=== PATIENT | female | born 1990 | race Caucasian/White ===

== ENCOUNTER 2023-09-16 19:16 | Emergency (ER) | payer OTHER, SELFPAY ==
[2023-09-16 19:31] VITALS: BP 125/87; PULSE 74; RESP 20; TEMP 36.9; O2SAT 98; BMI 25.7
[2023-09-16] MEDS: hydrOXYzine pamoate 25 MG CAPSULE 50 MG PO (19:45)
[2023-09-16 21:14] VITALS: PULSE 63
[2023-09-16 21:15] VITALS: BP 132/87; PULSE 62; O2SAT 99
[2023-09-16 21:19] VITALS: BP 132/87; PULSE 64; RESP 18; TEMP 37.1; O2SAT 100
--- NOTE | 2023-09-16 21:43 | ED.ANXIETY ---
HPI - Anxiety General Chief Complaint: Anxiety Stated Complaint: panic attack Time Seen by Provider: 09/16/23 21:25 Source: patient Mode of arrival: Ambulatory History of Present Illness HPI narrative: 32-year-old female presents for panic attack x2 days. Patient recently moved to the area, has numerous stressors, she states that she has anxiety but has never felt like this before. She tried to manage her symptoms at home but was unable to sleep and felt increasingly more panicky and so decided to come to the ER for evaluation. Patient has a primary care doctor's appointment on Wednesday (3 days) Related Data Previous Rx's Medication Instructions Recorded hydroxyzine HCl 25 mg tablet 25 mg PO TID PRN anxiety #30 tabs 09/16/23 Allergies Allergy/AdvReac Type Severity Reaction Status Date / Time No Known Drug Allergies Allergy Verified 09/16/23 19:31 Review of Systems Review of Systems Narrative: Negative except as noted above Patient History Social History Smoking Status: Never smoker Smoking Status: Never smoker tobacco type: vaping alcohol intake frequency: a few times a week Substance Use Type: marijuana Exam Initial Vital Signs Initial Vital Signs: Vital Signs Temperature 98.5 F 09/16/23 19:31 Pulse Rate 74 09/16/23 19:31 Respiratory Rate 20 09/16/23 19:31 Blood Pressure 125/87 09/16/23 19:31 Pulse Oximetry 98 09/16/23 19:31 Oxygen Delivery Method Room Air 09/16/23 19:31 Const: Awake, alert, tearful Cardiac: regular rate, regular rhythm RESP: unlabored, clear bilaterally, no wheezing GI: Atraumatic, soft, nontender, nondistended, no rebound, no guarding MSK: Atraumatic, full range of motion, pulses equal Skin: Warm, Dry, intact, no rashes Neuro: AO x3, CN II-XII grossly intact, moves all extremities Psych: anxious affect, not suicidal Course Course Course Narrative: Patient presenting for persistent panic attack. She does appear to be anxious, denies suicidal or homicidal ideation. Numerous stressors, patient recently moved here from [facility], started on a new job, and has a sick family member that is causing a lot of stress. Patient received hydroxyzine while in the waiting room and by the time she was placed in an ED bed she states the medicine made her feel much better and she finally felt tired. Patient has upcoming primary care appointment within 1 week and I recommended discussing possibly starting antianxiety medications and therapy. Patient states that she does attend therapy and we will continue to go to sessions. Hydroxyzine sent to pharmacy of choice. Orders Ordered: Discontinued Medications Hydroxyzine Pamoate (Hydroxyzine Pamoate 25 Mg Capsule) 50 mg PO NOW ONE Stop: 09/16/23 19:42 Last Admin: 09/16/23 19:45 Dose: 25 mg Documented By: QAMAR Hydroxyzine Pamoate (Hydroxyzine Pamoate 25 Mg Capsule) 25 mg PO NOW ONE Stop: 09/16/23 21:48 Last Admin: 09/16/23 21:51 Dose: 25 mg Documented By: LYNN Vital Signs Vital signs: Vital Signs - 8 hr 09/16/23 21:58 Temperature 99.5 F Pulse Rate 55 L Respiratory Rate 14 Blood Pressure 132/87 Pulse Oximetry 99 Oxygen Delivery Method Room Air MDM - Anxiety Differential Diagnosis Differential diagnosis: Likely hyperventilation, panic disorder and acute anxiety Discharge Plan Departure Patient Disposition: Home Clinical Impression: Acute anxiety Instructions: DI for Anxiety -- Adult Prescriptions: New hydroxyzine HCl 25 mg tablet 25 mg PO TID PRN (Reason: anxiety) Qty: 30 0RF Referrals: ProviderLucas [Primary Care Provider] - Stand Alone Forms: Patient Portal/API
[2023-09-16] MEDS: hydrOXYzine pamoate 25 MG CAPSULE PO (21:51)
[2023-09-16 21:58] VITALS: BP 132/87; PULSE 55; RESP 14; TEMP 37.5; O2SAT 99
== END 2023-09-16 21:59 | disposition home or self-care (01) ==
PROVIDERS: Emergency Provider Emergency Medicine
DX: F41.9 Anxiety disorder, unspecified (principal)
CPT/HCPCS: 99283

== ENCOUNTER → 2024-05-30 08:11 | Outpatient (CLI) | payer OTHER, SELFPAY ==
[2024-05-30 09:26] LABS: HCG Quantitative /Beta subunit 6142.6 mIU/mL
== END ==
LOC: LAB 08:12
PROVIDERS: Referring Provider Student in an Organized Health Care Education/Training Program; Visit Provider Student in an Organized Health Care Education/Training Program
DX: Z34.80 Encounter for supervision of other normal pregnancy, unspecified trimester (principal); N96 Recurrent pregnancy loss
CPT/HCPCS: 36415; 84702

== ENCOUNTER → 2024-06-01 08:12 | Outpatient (CLI) | payer OTHER, SELFPAY ==
[2024-06-01 11:17] LABS: HCG Quantitative /Beta subunit 14778 mIU/mL
== END ==
PROVIDERS: Referring Provider Student in an Organized Health Care Education/Training Program; Visit Provider Student in an Organized Health Care Education/Training Program
DX: Z34.80 Encounter for supervision of other normal pregnancy, unspecified trimester (principal); N96 Recurrent pregnancy loss
CPT/HCPCS: 36415; 84702

== ENCOUNTER → 2024-06-19 10:15 | Outpatient (CLI) | payer OTHER, SELFPAY | PROVIDERS: Visit Provider Student in an Organized Health Care Education/Training Program | DX: Z34.80 Encounter for supervision of other normal pregnancy, unspecified trimester (principal); Z86.39 Personal history of other endocrine, nutritional and metabolic disease | CPT/HCPCS: 87086 ==

== ENCOUNTER → 2024-07-07 08:29 | Outpatient (CLI) | payer OTHER, SELFPAY ==
[2024-07-07 09:11] LABS: Add Manual Diff / Slide Review NO; Basophils Absolute Auto 100 /uL (0-100); Basophils Percent Auto 0.8 % (0-2); Eosinophils Absolute Auto 200 /uL (0-450); Hematocrit 40.6 % (36-46); Hemoglobin 14.1 g/dL (12.0-16.0); Lymphocytes Absolute Auto 1700 /uL (1100-4500); Lymphocytes Percent Auto 18.2 % (25-40); Mean Corpuscular HGB Conc 34.8 % (30-36); Mean Corpuscular Hemoglobin 30.1 PG (26-34); Mean Corpuscular Volume 86.6 fL (80-100); Monocytes Absolute Auto 600 /uL (0-900); Monocytes Percent Auto 5.9 % (3-14); Neutrophils Absolute Auto 6900 /uL (1500-7000); Neutrophils Percent Auto 73.1 % (50-75); Platelet Count 281 X10^3/uL (150-400); Red Blood Cell Count 4.69 X10^6/uL (4.0-5.2); Red Cell Distribution Width 12.2 % (11.6-14.8); White Blood Cell Count 9.5 X10^3/uL (4.5-11.0)
[2024-07-07 09:35] LABS: Natera Collection Specimen Collected
[2024-07-07 09:52] LABS: Thyroid Stimulating Hormone 1.43 uIU/mL (0.47-4.68)
[2024-07-07 09:55] LABS: Hepatitis B Surface Antigen NEGATIVE s/c (NEGATIVE); Rubella Antibody IgG 51.7 IU/mL (>15)
[2024-07-07 10:11] LABS: HIV 1 & 2 Ab/Ag 4th Gen Combo NEGATIVE (NEGATIVE); Hep C Virus Ab w/Reflex Quant NEGATIVE s/c (NEGATIVE)
[2024-07-08 06:36] LABS: RPR Screen Non Reactive (Non Reactive)
[2024-07-08 11:15] LABS: Varicella IgG Antibody Reactive (Non Reactive)
== END ==
LOC: LAB 08:30
PROVIDERS: Referring Provider Student in an Organized Health Care Education/Training Program; Visit Provider Student in an Organized Health Care Education/Training Program
DX: Z34.01 Encounter for supervision of normal first pregnancy, first trimester (principal); Z86.39 Personal history of other endocrine, nutritional and metabolic disease; Z3A.10 10 weeks gestation of pregnancy
CPT/HCPCS: 36415; 80055; 84443; 86787; 86803; 86850; 86900; 86901; 87389

== ENCOUNTER → 2024-09-11 09:50 | Outpatient (CLI) | payer OTHER, SELFPAY ==
--- NOTE | 2024-09-11 09:52 | DI.US.S_ITS ---
PROCEDURE: US OB >= 14 WEEKS FETUS INDICATIONS: 20 WEEK ANATOMY OUTSIDE/PRIOR DATING DATA: The calculations are made using the working KENYA of 01/28/2025. TECHNIQUE: Real-time scanning was performed of the fetus, with image documentation and biometric measurements. Endovaginal scanning: Not performed COMPARISON: None. FINDINGS: General: A single living intrauterine gestation is present. Presentation: Vertex. Placenta: Placental position is anterior , without previa. Amniotic fluid index: 15.2 cm, normal range is 5-24 cm. Single deepest vertical pocket is 5.4 cm. heart rate: 152 beats per minute. Maternal cervical canal: 3.7 cm long. Normal lower limit is 2.5 cm. biometrics: Biparietal diameter: 4.7 centimeter, 20 weeks 2 days Head circumference: 18.4 centimeter, 20 weeks 5 days Abdominal circumference: 16.8 centimeter, 21 weeks 6 days Femur length: 3.2 centimeters, 19 weeks 6 days Clinically estimated gestational age: 20 weeks 1 day Composite gestational age from present scan: 20 weeks 5 days Estimated weight and percentile: 384 grams, 85 percentile Anatomic survey: Neuro: Ventricles are non-dilated at less than 10 mm. Cisterna magna is normal at 3-11 mm. Cerebellum is normal in size and morphology. Nuchal skin fold: Normal at less than 6 mm between 14-21 weeks gestational age. Face: Nose and lips, facial profile are normal. Spine: No evidence for spina bifida. Heart: 4-chambered heart is present, with normal ventricular outflow tracts. Diaphragm: Diaphragm is intact. Stomach: Left-sided stomach is present. Kidneys: No hydronephrosis. Normal is less than 5 mm in 2nd trimester, less than 7 mm in 3rd trimester. Cord: 3-vessel cord has orthotopic insertion. Bladder: Normal in size. Extremities: All 4 extremities identified. IMPRESSION: Single living intrauterine at 20 weeks 1 day, KENYA of 01/28/2025. Estimated weight of 384 grams, 85th percentile. Normal anatomy survey. We strive to produce accurate, complete, and clear reports of imaging services. To assist us in improving patient care, this report was composed using standard report templates and voice recognition software. Therefore, it may contain abnormal punctuation, insertions and/or omissions. Occasional wrong-word or sound-alike substitutions may occur. Though we review the report and make efforts to correct it, we do recommend that the report be read carefully in proper context to recognize any text inaccuracies. Dictated by: Pee Dougherty M.D. on 09/11/2024 at 16:42 Approved by: Pee Dougherty M.D. on 09/11/2024 at 16:44
== END ==
PROVIDERS: Referring Provider Student in an Organized Health Care Education/Training Program; Visit Provider Student in an Organized Health Care Education/Training Program
DX: Z34.82 Encounter for supervision of other normal pregnancy, second trimester (principal); Z3A.20 20 weeks gestation of pregnancy
CPT/HCPCS: 76811

== ENCOUNTER → 2024-10-28 09:34 | Outpatient (CLI) | payer OTHER, SELFPAY ==
[2024-10-28 11:12] LABS: Hematocrit 33.4 % (36-46)
[2024-10-28 11:46] LABS: GTT (PREG) 1 Hour PP 50gm Dose 121 mg/dL (76-139)
== END ==
PROVIDERS: Referring Provider Student in an Organized Health Care Education/Training Program; Visit Provider Student in an Organized Health Care Education/Training Program
DX: Z34.82 Encounter for supervision of other normal pregnancy, second trimester (principal); Z3A.26 26 weeks gestation of pregnancy; Z67.91 Unspecified blood type, Rh negative; Z86.39 Personal history of other endocrine, nutritional and metabolic disease
CPT/HCPCS: 36415; 82950; 84443; 85014; 85018; 86850

== ENCOUNTER → 2025-01-01 08:19 | Outpatient (CLI) | payer OTHER, SELFPAY ==
[2025-01-02 16:24] LABS: Strep Grp B PCR NEG for Grp B Strep
== END ==
PROVIDERS: Referring Provider Student in an Organized Health Care Education/Training Program; Visit Provider Student in an Organized Health Care Education/Training Program
DX: Z36.85 Encounter for antenatal screening for Streptococcus B (principal)
CPT/HCPCS: 87653

== ENCOUNTER 2025-01-22 15:03 | Inpatient (IN) | payer OTHER, SELFPAY ==
[2025-01-22 15:05] VITALS: BP 123/69
[2025-01-22 15:48] LABS: Add Manual Diff / Slide Review NO; Basophils Absolute Auto 100 /uL (0-100); Basophils Percent Auto 0.8 % (0-2); Eosinophils Absolute Auto 100 /uL (0-450); Eosinophils Percent Auto 0.8 % (2-4); Hematocrit 32.5 % (36-46); Hemoglobin 11.4 g/dL (12.0-16.0); Lymphocytes Absolute Auto 1700 /uL (1100-4500); Lymphocytes Percent Auto 15.1 % (25-40); Mean Corpuscular Hemoglobin 30.6 PG (26-34); Mean Corpuscular Volume 87.2 fL (80-100); Monocytes Absolute Auto 700 /uL (0-900); Monocytes Percent Auto 6.4 % (3-14); Neutrophils Absolute Auto 8400 /uL (1500-7000); Neutrophils Percent Auto 76.9 % (50-75); Platelet Count 212 X10^3/uL (150-400); Red Blood Cell Count 3.73 X10^6/uL (4.0-5.2); Red Cell Distribution Width 12.5 % (11.6-14.8); White Blood Cell Count 10.9 X10^3/uL (4.5-11.0)
[2025-01-22] MEDS: miSOPROStoL 25 MCG TABLET 50 MCG PO (15:54)
--- NOTE | 2025-01-22 16:31 | P.HPOB_ITS ---
OB HPI Date/Time Date of admission: 01/22/25 Date Patient Seen: 01/22/25 Time Patient Seen: 16:31 History of Present Condition Chief complaint: INDUCTION KENYA Calculator 2 Estimated Delivery Date Method Current WG Current Estimate 01/28/25 LMP (Certain) 39w 1d Other Estimates 01/30/25 Ultrasound #1 38w 6d 01/30/25 Conception 38w 6d : 3 Para: 0 Narrative: 34yo at 39+1wks admitted for elective IOL. She reports occasional contractions, denies leaking fluid or vaginal bleeding. Feeling regular movement. care: good care Dating criteria OB: LMP confirmed by 1st trimester US Ultrasounds: normal mid trimester US Narrative: Ultrasound Ultrasound Details:: Dating sono 06/19/24: jay IUP with CRL 1.46cm (7+6wks), FHR 153, normal appearing uterus, cervix, bilateral ovaries Anatomy US 09/11/24: normal anatomy, anterior placenta, EFW 85%ile Specific Issues/Plans [x ] cfDNA- low risk XX; declined CF/SMA Desires elective IOL at 39wks--> on wishlist for evening of 01/22 Rh negative--> [ x] rhogam at 28wks Anxiety, currently well managed on 50mg sertraline Hx partial thyroidectomy (not on synthroid), nml TSH with NOB labs Nausea/vomiting of --> using B6/unisom, zofran Misbah (active duty; 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) Assigned to [facility] Preadmission Labs Last OB Lab Results: 2 Blood Type O Negative 07/07/24 08:35 Antibody Screen Negative 10/28/24 09:49 Hct 32.5 % (36-46) L 01/22/25 15:15 Hgb 11.4 g/dL (12.0-16.0) L 01/22/25 15:15 Hep Bs Antigen Negative s/c (NEGATIVE) 07/07/24 08:35 Hepatitis C Antibody Negative s/c (NEGATIVE) 07/07/24 08:35 Rubella Antibody 51.7 IU/mL (>15) 07/07/24 08:35 VZV IgG Antibody Reactive (Non Reactive) 07/07/24 08:35 Glucose 1 Hr 50 gm 121 mg/dL (76-139) 10/28/24 11:04 Group B Strep (PCR) Neg for grp b strep 01/01/25 08:19 Glucose Tolerance Testin hr (negative) -: Chlamydia screen: negative, Gonorrhea screen: negative and Urine: negative -: PAP smear: Normal Genetic Screens: Cell-free DNA: Normal External Labs -: Urine: negative Prior (ies) Past Pregnancies Del. Date GA/Weeks Labor Lgth Wt Sex Route Outcome Anesthesia Place Delv Breastfeed Preg Comp Name 07/13/17 10 spontaneous 11/09/23 <7 spontaneous Delivery Date: 07/13/17 Last Updated by: Neli Spain RN missed AB, needed D&C. No complications. Delivery Date: 11/09/23 Last Updated by: Jewels Adamson DO blighted ovum, managed with cytotec Evaluation Evaluation Baseline heart rate: 130 Variability: Moderate (11-25) monitor accelerations: Present Monitor Decelerations: Absent Status: Category l Dilation (cm): 0 Effacement (%): 0 station: -3 Position of cervix: posterior Consistency: medium PFSH Medical History (Updated 12/19/24 @ 08:47 by Jewels Adamson DO) Missed Thyroid nodule (~2017) History of thyroid disease Strep throat Hypopituitarism Anxiety (~2008) Goiter Surgical History (Updated 11/26/23 @ 18:49 by Marta Walker) Anesthesia H/O dilation and curettage (~2016) [place] teeth extracted (~2010) History of tonsillectomy and adenoidectomy (~2002) History of partial thyroidectomy (~2018) Family History (Updated 11/26/23 @ 18:49 by Marta Walker) Father Adopted Hypertension Obesity Mother Diverticulosis Obesity Alcoholism Mental health problem Grandfather Leukemia Grandmother Hypothyroidism Dementia Diverticulosis Grandmother Breast cancer Uncle Melanoma Social History marital status: number of children: 0 household members: spouse lives independently: Yes caregiver/support person: No housing: house pets and animals: Yes (2 dogs, 2 cats, manages litter box) education level: master's degree (law) occupational status: employed (works from home) current occupational exposures/hazards: No special colleen needs: No travel history: recent (domestic only) seatbelt use: always helmet use: No water heater temp set < 120 deg: Yes working smoke detector in home: Yes fire extinguisher in home: Yes carbon monox detector in home: Yes firearms in home: Yes firearms unloaded and locked: Yes do you feel safe at home: Yes Smoking Status: Former smoker Tobacco: How many years used: 3 (vape pens only) second hand exposure: Yes ( vapes, but cutting back) alcohol intake: former (~5 seltzers/week when not ) substance use type: marijuana (agrees not to use while /) during the past year weight has: remained stable well-balanced diet: daily or most days daily servings fruits/ve or more times/day caffeine: Yes (1 cup AM coffee) Type(s) of exercise: walking and other (hiking on weekends) frequency: daily Meds Home Medications and Allergies Home Medications Medication Instructions Recorded Confirmed Type vit no.95-ferrous 1 tab PO DAILY 10/22/23 01/22/25 History fumarate 28 mg-folic acid 800 mcg tablet ( Multivitamins) sertraline 50 mg tablet 50 mg PO DAILY #90 tabs 06/19/24 01/22/25 Rx Allergies Allergy/AdvReac Type Severity Reaction Status Date / Time mushroom AdvReac Mild Abdominal Verified 01/08/25 10:11 Pain Review of Systems Review of Systems ROS: Yes All systems reviewed with the patient and are negative except as otherwise documented OB Exam Vital signs Blood Pressure: 121/77 Pulse Rate: 64 Temperature: 97.2 F HENMT Head: normal to inspection and normocephalic Eyes General: appearance normal, both eyes and all related structures Resp Effort & Inspection: normal respiratory effort and able to speak in complete sentences Extremities Lower extremity: Yes normal to inspection GI Inspection: normal to inspection Other: gravid, nontender, nondistended Objective Labs 01/22/25 15:15 Labs: Laboratory Results - last 24 hr 01/22/25 15:15 WBC 10.9 RBC 3.73 L Hgb 11.4 L Hct 32.5 L MCV 87.2 MCH 30.6 MCHC 35.0 RDW 12.5 Plt Count 212 Neut % (Auto) 76.9 H Lymph % (Auto) 15.1 L [place] % (Auto) 6.4 Eos % (Auto) 0.8 L Baso % (Auto) 0.8 Neut # (Auto) 8400 H Lymph # (Auto) 1700 [place] # (Auto) 700 Eos # (Auto) 100 Baso # (Auto) 100 Assessment and Plan Assessment and Plan Assessment and Plan narrative: 34yo at 39+1wks admitted for induction of labor. -CBC, T&S on admission -continuous EFM -epidural PRN -GBS neg, ppx not indicated -PPH risk low -VTE risk low, SCDs with epidural -anticipate L&D Counseling: Common procedures and interventions related to the management of were explained to the patient, including assistance at vaginal delivery with episiotomy, vacuum, or forceps, use of medications to stop premature labor or induce labor, and assessment including auscultation (listening to the heart), use of electronic monitoring (external and / or internal), and use of scalp electrode and/or intrauterine pressure catheter.? It was also explained that approximately 20-30% of mothers have a need for delivery during their labor course. It was explained to the patient that , labor and delivery are ordinarily normal physiological events and can be expected to provide a healthy outcome for mother and baby in the majority of cases. However, there are complications that may arise during , labor, and delivery, such as: hemorrhage requiring administration of blood and/or blood products, surgical intervention, possibly even hysterectomy for life-saving purposes; possibility of infection requiring antibiotics, prolonged hospital stay, and rarely surgical intervention; possibility of blood clots;? possibility of retained products of conception requiring surgical intervention;? possibility of serious tears or injury to the vagina, cervix, perineum, or rectum;? possibility of injury to abdominal structures if delivery is required;? and rarely maternal or may occur. Time-Based Coding :: [30min] spent with patient and on the chart (including review of chart, obtaining history, exam, reviewing outside data, placing orders, documenting exam and treatment plan, and counseling patient) on [01/22/25].
[2025-01-22 16:40] VITALS: BP 121/77; PULSE 64; TEMP 36.2
[2025-01-22] MEDS: SERTRALINE 50 MG TABLET PO (21:05)
[2025-01-22] MEDS: LACTATED RINGERS 1,000 ML 999 ML IV (23:29)
[2025-01-23] MEDS: miSOPROStoL 25 MCG TABLET 50 MCG PO (00:05)
--- NOTE | 2025-01-23 08:21 | PM.OBPNLAB ---
Date/Time Date Patient Seen: 01/23/25 Time Patient Seen: 08:21 Pain Control Pain control: tolerating well Pelvic Exam Dilation (cm): 1 Effacement (%): 50 station: -3 Amniotic membrane status: Intact Contractions Contraction frequency (min): 2 Contraction pattern: Irregular Contraction intensity: Moderate Status status: Category l Heart Rate Baseline: 130 Monitor Accelerations: Present Monitor Decelerations: Absent Monitor Variability: Moderate Assessment and Plan Assessment: induction ongoing Comments: 34yo at 39+2wks undergoing IOL. She received 3 doses of cytotec overnight. Alejandre bulb was placed this morning at 0815 with 60cc in the balloon. -plan to start pitocin once contractions space out -epidural PRN
[2025-01-23] MEDS: ONDANSETRON 4 MG/2 ML INJ IV (08:25)
[2025-01-23] MEDS: OXYTOCIN PREMIX 30 UNIT/500 ML PLAST..BAG IV (13:26)
[2025-01-23] MEDS: DOCUSATE 100 MG CAPSULE 200 MG PO (13:28)
[2025-01-23] MEDS: FENT 2MCG/ML BUPIV 0.125% EPI 200 MCG/100 ML PLAST..BAG 10 MCG EPIDURAL ×2 (15:54→22:12)
--- NOTE | 2025-01-23 16:12 | PM.AN.REGBLK ---
Regional Block Pre-procedure Procedure: Continuous Lumbar Epidural for L&D Attending OB provider: Jewels Adamson PMH/ROS narrative: , 39 weeks, elective IOL. ROS negative with exception of hx of depression and occasional GERD PSH/Anesthesia history narrative: Noncontributory Exam narrative: Mall II, good dentition ASA Class: II Labs: Hct 32.5 % (36-46) L 01/22/25 15:15 Plt Count 212 X10^3/uL (150-400) 01/22/25 15:15 Medications: Current Medications Generic Name Dose Route Start Last Admin Trade Name Freq PRN Reason Stop Dose Admin Calcium Carbonate 1,000 mg 01/22/25 15:06 Calcium Carbonate 500 Mg Tab PO Q2HR PRN Dyspepsia Carboprost Tromethamine 250 mcg 01/22/25 15:06 Carboprost 250 Mcg/Ml Ampul IM Q90M PRN Bleeding Diphenhydramine HCl 25 mg 01/23/25 16:10 Diphenhydramine 50 Mg/Ml Vial IV Q10M PRN Pruritis Docusate Sodium 200 mg 01/23/25 09:00 01/23/25 13:28 Docusate 100 Mg Capsule PO 200 mg DAILY CARMITA Administration Ephedrine Sulfate 10 mg 01/23/25 16:10 Ephedrine 50 Mg/Ml Vial IV Q5M PRN Blood pressure decrease more than 20% of baseline. Oxytocin/Lactated Ringer's 30 unit in 500 mls @ 2 mls/hr 01/22/25 15:15 01/23/25 13:26 Oxytocin Premix IV 2 milliunit/min TITRATE CARMITA 2 mls/hr Protocol Administration 2 MILLIUNIT/MIN Tranexamic Acid 1,000 mg/ 100 mls @ 600 mls/hr 01/22/25 15:06 Sodium Chloride IV NOW PRN Bleeding Oxytocin/Lactated Ringer's 30 unit in 500 mls @ 200 mls/hr 01/22/25 15:06 Oxytocin Premix IV CONT PRN Bleeding Protocol FENT 2MCG/ML BUPIV 0.125% EPI 200 mcg in 100 mls @ 10 mls/hr 01/23/25 16:15 Fentanyl/Bupiv/Ns 2mcg/Ml - 0.125% EPIDURAL CONT CARMITA Lidocaine HCl 20 ml 01/22/25 15:06 Lidocaine 1% 20 Ml INJ INTRA-OP PRN Post Delivery Methylergonovine Maleate 0.2 mg 01/22/25 15:06 Methylergonovine 0.2 Mg/Ml Vial IM NOW PRN Bleeding Methylergonovine Maleate 0.2 mg 01/22/25 15:06 Methylergonovine 0.2 Mg Tablet PO Q6HR PRN Heavy Bleeding Misoprostol 400 mcg 01/22/25 15:06 Misoprostol 200 Mcg Tablet SL NOW PRN Bleeding Misoprostol 800 mcg 01/22/25 15:06 Misoprostol 200 Mcg Tablet MA NOW PRN Bleeding Misoprostol 50 mcg 01/22/25 15:06 01/23/25 00:05 Misoprostol 25 Mcg Tablet PO 50 mcg Q4H PRN Administration cervical ripening Nalbuphine HCl 2.5 mg 01/23/25 16:10 Nalbuphine 20 Mg/Ml Ampul IV Q10M PRN Pruritis Naloxone HCl 0.2 mg 01/22/25 15:06 Naloxone 0.4 Mg/Ml Vial IV Q2MIN PRN Opiate Reversal Ondansetron HCl 4 mg 01/22/25 15:06 01/23/25 08:25 Ondansetron 4 Mg/2 Ml Inj IV 4 mg Q4HR PRN Administration Nausea And Vomiting Oxytocin 10 unit 01/22/25 15:06 Oxytocin 10 Unit/Ml Vial IM NOW PRN Bleeding Sertraline HCl 50 mg 01/22/25 21:00 01/22/25 21:05 Sertraline 50 Mg Tablet PO 50 mg BEDTIME CARMITA Administration Allergies: Allergies Allergy/AdvReac Type Severity Reaction Status Date / Time mushroom AdvReac Mild Abdominal Verified 01/08/25 10:11 Pain Procedure Insertion date: 01/23/25 Insertion time: 15:39 Prep/Local: 1% lidocaine (chlorhex skin prep, dry x 3 min) Interspace: L4-5 Patient position: sitting Needle: 17 gauge Tuohy Loss of resistance with: saline MARILOU at (cm): 7 Catheter placed at SKIN (cm): 13 Catheter in SPACE (cm): 6 Sensory level: T10 Insertion: No CSF, No Blood, No Paresthesia with insertion, No Paresthesia with injection and No Test dose reaction Initial Medications TEST DOSE time: 15:54 BOLUS DOSE time: 16:03 BOLUS DOSE (mL): 5 BOLUS DOSE med: other (pump solution) Infusion INFUSION: 0.125% bupivacaine and with fentanyl 2 mcg/mL Initial rate (mL/hr): 10 Post-procedure Anesthesia date START: 01/23/25 Anesthesia time START: 15:39
--- NOTE | 2025-01-23 17:01 | PM.OBPNLAB ---
Date/Time Date Patient Seen: 01/23/25 Time Patient Seen: 17:01 Pain Control Pain control: epidural Pelvic Exam Dilation (cm): 4 Effacement (%): 50 station: -3 Amniotic membrane status: Ruptured Comments: AROM performed, productive of clear fluid Contractions Pitocin rate (mU/min): 14 Status status: Category l Heart Rate Baseline: 130 Monitor Accelerations: Present Monitor Decelerations: Absent Monitor Variability: Moderate Assessment and Plan Assessment: induction ongoing Plan: continuous present management
[2025-01-23] MEDS: SERTRALINE 50 MG TABLET PO (22:12)
[2025-01-24] MEDS: LIDOCAINE 1% 20 ML INJ (00:12)
[2025-01-24] MEDS: METHYLERGONOVINE 0.2 MG/ML VIAL IM (00:17)
[2025-01-24] MEDS: TRANEXAMIC ACID 1,000 MG in SODIUM CHLORIDE 0.9% 100 ML 600 MG IV (00:28)
[2025-01-24] MEDS: miSOPROStoL 200 MCG TABLET 800 MCG PR ×2 (00:30→00:31)
[2025-01-24] MEDS: OXYTOCIN PREMIX 30 UNIT/500 ML PLAST..BAG 200 UNIT IV (00:33)
--- NOTE | 2025-01-24 00:47 | P.PCNOB_ITS ---
Events: Labor Induction Labor & Delivery Delivery date: 01/23/25 Delivery Time: 11:59 Cervical ripening method: per misoprostal protocol (& avelar bulb) Induction method: per pitocin protocol Delivery augmentation: rupture of membranes Delivery monitor: external FHT and external uterine Route of delivery: L&D Laceration Description: Perineal - 1st Degree Delivery repair: vicryl Quantitative Blood Loss: 1,234 Anesthesia Type: Epidural Complications: hemorrhage due to uterine atony Narrative: The patient progressed to C/C/+2 with pitocin augmentation and epidural anesthesia. After approximately 1.5hrs of maternal pushing efforts, the infant delivered in OA position and restituted LOT. The anterior shoulder delivered with gentle upward pressure, given that the patient was in hands/knees position. The posterior shoulder and rest of body delivered with ease. The cord was doubly clamped and cut after a 60sec delay with the handed through the patient's legs and brought to her chest. The placenta delivered spontaneously and was intact with a 3-vessel cord. The fundus was noted to be boggy, thus she received pitocin, methergine x1, 1g TXA, and 1000mcg cytotec per rectum. The uterus firmed up after the uterotonics, bimanual massage, and several uterine sweeps to clear any clots. Inspection of the cervix, vagina, and perineum was notable for a 1st degree perineal laceration. Repair was performed using 3-0 Vicryl in a running, unlocked fashion. At the end of the repair, all tissues noted to be hemostatic. All sponges were removed from the vagina. The patient tolerated delivery well and remained in the labor room with the infant at the bedside. [place] Baby 1: Infant gender: Female Presentation: vertex Placenta delivery description: Spontaneous Cord Vessel Description: 3 Vessels score (1 min): 9 score (5 min): 9 weight: 7 lb 14.845 oz Plan for aftercare: Routine care
[2025-01-24] MEDS: ACETAMINOPHEN 325 MG TABLET 650 MG PO ×4 (02:02→20:58)
[2025-01-24] MEDS: LANOLIN OINT 7 GM 1 APPLIC TOP (02:02)
[2025-01-24] MEDS: IBUPROFEN 600 MG TABLET PO ×4 (02:02→20:58)
[2025-01-24] MEDS: WITCH HAZEL/GLYCERIN PADS 1 EACH TOP (02:03)
[2025-01-24] MEDS: DERMOPLAST SPRAY 20% 60 ML 1 SPRAY TOP (02:03)
[2025-01-24 06:19] LABS: Add Manual Diff / Slide Review NO; Basophils Absolute Auto 200 /uL (0-100); Basophils Percent Auto 0.8 % (0-2); Eosinophils Absolute Auto 0 /uL (0-450); Hematocrit 29.9 % (36-46); Hemoglobin 10.3 g/dL (12.0-16.0); Lymphocytes Absolute Auto 900 /uL (1100-4500); Lymphocytes Percent Auto 4.1 % (25-40); Mean Corpuscular HGB Conc 34.4 % (30-36); Mean Corpuscular Hemoglobin 29.8 PG (26-34); Mean Corpuscular Volume 86.7 fL (80-100); Monocytes Absolute Auto 1000 /uL (0-900); Monocytes Percent Auto 4.7 % (3-14); Neutrophils Absolute Auto 20200 /uL (1500-7000); Neutrophils Percent Auto 90.4 % (50-75); Platelet Count 178 X10^3/uL (150-400); Red Blood Cell Count 3.45 X10^6/uL (4.0-5.2); Red Cell Distribution Width 12.4 % (11.6-14.8); White Blood Cell Count 22.4 X10^3/uL (4.5-11.0)
[2025-01-24] MEDS: FERROUS SULFATE 325 MG TABLET PO (08:41)
[2025-01-24] MEDS: PRENATAL VIT,CALC/IRON/FOLIC 1 TABLET 1 TAB PO (08:41)
[2025-01-24] MEDS: DOCUSATE 100 MG CAPSULE PO (08:41)
--- NOTE | 2025-01-24 13:33 | P.PNOB_ITS ---
Subjective - OB Subjective Patient comments: no complaints, pain well controlled and tolerating diet baby status: doing well and nursing well feeding status: exclusively breast feeding Narrative: Pt resting in bed, states she feels significantly better after a nap. Ambulating without LH/dizziness, voiding without difficulty. well. No concerns identified Date Patient Seen: 01/24/25 Time Patient Seen: 13:33 Exam Vital Signs (past 8 hours): maternal VSS/afebrile, reviewed in OBIX Const General: cooperative, healthy appearing and comfortable Nutritional Appearance: average body habitus Orientation: alert, awake and oriented x3 Limitations: mental status not altered HENMT Head: normal to inspection Resp Effort & Inspection: normal respiratory effort and able to speak in complete sentences Cardio Pulses: normal peripheral pulses GI Palpation: soft Other: fundus firm << umb, non-tender Other: deferred Skin General: no rashes or lesions noted Neuro General: patient alert, patient awake and patient oriented x3 Extrem General: normal to inspection Psych Mental Status: mental status grossly normal Judgment: judgment good Objective Labs 01/24/25 06:06 Labs: Laboratory Results - last 24 hr 01/24/25 06:06 WBC 22.4 H D RBC 3.45 L Hgb 10.3 L Hct 29.9 L MCV 86.7 MCH 29.8 MCHC 34.4 RDW 12.4 Plt Count 178 Neut % (Auto) 90.4 H Lymph % (Auto) 4.1 L [place] % (Auto) 4.7 Eos % (Auto) 0.0 L Baso % (Auto) 0.8 Neut # (Auto) 96091 H Lymph # (Auto) 900 L [place] # (Auto) 1000 H Eos # (Auto) 0 Baso # (Auto) 200 H Assessment & Plan Plan day: 1 plan OB: routine care Comments: routine care stage 2 PPH (QBL 1200, TXA/methergine/uterine sweep), interval h/h appropriate, asymptomatic; plan for FeSO4 supp on discharge, no fundal tenderness on exam/afebrile support PRN readdress contraception prior to discharge anticipate dc to home PPD2 Time-Based Coding :: [TOTAL MINUTES] spent with patient and on the chart (including review of chart, obtaining history, exam, reviewing outside data, placing orders, documenting exam and treatment plan, and counseling patient) on [DATE].
[2025-01-24] MEDS: SERTRALINE 50 MG TABLET PO (20:59)
[2025-01-25] MEDS: IBUPROFEN 600 MG TABLET PO (04:24)
[2025-01-25] MEDS: ACETAMINOPHEN 325 MG TABLET 650 MG PO (04:24)
[2025-01-25 08:30] LABS: Add Manual Diff / Slide Review NO; Basophils Absolute Auto 100 /uL (0-100); Basophils Percent Auto 0.7 % (0-2); Eosinophils Absolute Auto 100 /uL (0-450); Eosinophils Percent Auto 0.9 % (2-4); Hematocrit 26.9 % (36-46); Hemoglobin 9.3 g/dL (12.0-16.0); Lymphocytes Absolute Auto 2000 /uL (1100-4500); Lymphocytes Percent Auto 12.5 % (25-40); Mean Corpuscular HGB Conc 34.6 % (30-36); Mean Corpuscular Hemoglobin 30.4 PG (26-34); Mean Corpuscular Volume 87.8 fL (80-100); Monocytes Absolute Auto 900 /uL (0-900); Neutrophils Absolute Auto 12500 /uL (1500-7000); Neutrophils Percent Auto 79.9 % (50-75); Platelet Count 206 X10^3/uL (150-400); Red Blood Cell Count 3.06 X10^6/uL (4.0-5.2); Red Cell Distribution Width 12.4 % (11.6-14.8); White Blood Cell Count 15.7 X10^3/uL (4.5-11.0)
--- NOTE | 2025-01-25 08:47 | PM.OBDS.1 ---
Discharge Providers Provider Date of admission: 01/22/25 15:03 Discharge Date: 01/25/25 Primary care physician: Lucas LEIJA Provider Consults: 01/22/25 15:06 Consult to Anesthesiology Urgent Comment: Consulting Provider: Anesthesiologist Reason for consultation: Epidural 01/25/25 00:44 Consult to Finishing Range Feeder Routine Comment: Discharge provider: Jewels Adamson DO Summary Hospital Course Date Patient Seen: 01/25/25 Time Patient Seen: 08:15 Diagnoses: Term gestation at 39+3wks Rh negative status History of anxiety Hospital Course: 34yo [id number] admitted at 39+1wks for induction of labor. She progressed through labor, and underwent a spontaneous vaginal delivery. Her delivery was complicated by hemorrhage due to uterine atony. The delivery was productive of a viable female infant with APGARs 9/9. Her course was notable for occasional mild range blood pressures, but she remained asymptomatic. On day #2, she was ambulating, tolerating regular diet, voiding spontaneously with minimal lochia. Her pain was well controlled with oral medications, thus she was discharged to home on day #2 and advised to walk-in for a blood pressure check within the next week. Peripartum Data Delivery Method: Natural Vaginal Laceration Description: Perineal - 1st Degree Procedures: External monitoring Induction of labor Epidural anesthesia Spontaneous vaginal delivery Obstetrical laceration repair complications: none Perdido 1: Gender: Female Disposition of : home Discharge Diagnosis (1) Normal vaginal delivery: Status: Acute (2) Single live : Status: Acute (3) atony of uterus with hemorrhage: Status: Acute (4) Anemia due to acute blood loss: Status: Acute (5) hypertension: Status: Acute (6) Rh negative status during : Status: Acute (7) Anxiety during : Status: Acute (8) 39 weeks gestation of : Status: Acute Status at Discharge Cognitive/behavioral status at discharge: oriented Functional status at discharge: independent ambulation Overall status at discharge: patient is progressing back to baseline Time Spent with Patient Time attestation: Total time spent providing and/or coordinating discharge services: Time spent: Less than 30 minutes Objective Labs 01/25/25 08:13 Labs: Laboratory Results - last 24 hr 01/25/25 08:13 WBC 15.7 H RBC 3.06 L Hgb 9.3 L Hct 26.9 L MCV 87.8 MCH 30.4 MCHC 34.6 RDW 12.4 Plt Count 206 Neut % (Auto) 79.9 H Lymph % (Auto) 12.5 L [place] % (Auto) 6.0 Eos % (Auto) 0.9 L Baso % (Auto) 0.7 Neut # (Auto) 90768 H Lymph # (Auto) 2000 [place] # (Auto) 900 Eos # (Auto) 100 Baso # (Auto) 100 Exam Vital Signs (past 8 hours): vitals reviewed in OBIX, several intermittent mild range blood pressures, otherwise within normal parameters Const General: cooperative, healthy appearing, comfortable and No acute distress Resp Effort & Inspection: normal respiratory effort GI Inspection: normal to inspection Other: fundus firm and nontender at U-2 Skin General: no rashes or lesions noted Neuro General: patient alert and patient awake Extrem General: normal to inspection, no pedal edema and no calf tenderness Psych Mood: congruent mood Affect: normal affect Discharge Plan Discharge Plan Patient Disposition: Home Provider Discharge Comment: Take ibuprofen 600mg every 6hrs and acetaminophen 650mg every 6hrs as needed for pain. Avoid placing anything in the vagina for 6 weeks. Please take an oral iron supplement every other day to help replenish your iron stores due to your post-delivery anemia. Please walk-in to the OB clinic next week for a blood pressure check. Discharge orders & Medications Prescriptions: Continued PNV cmb#[id number] fumarate-FA [ Multivitamins] 28 mg iron- 800 mcg tablet 1 tab PO DAILY sertraline 50 mg tablet 50 mg PO DAILY Qty: 90 3RF Follow up/Referrals: Jewels Adamson DO [Physician, [employer]ATING [employer]] Diet/Activity/Treatments Diet: Diet as Tolerated Activity: As tolerated. Skin/Wound/Dressing Care Report to your healthcare provider any signs of infection, such as:: chills, fever, increased pain and unusual drainage Visit Report/Discharge Packet Instructions: DI for Hemorrhage, DI for Labor and Delivery, Vaginal , Preeclampsia and Eclampsia After Childbirth Stand Alone Forms: Patient Portal/API, Stroke Signs & Symptoms Discharge Data Primary Care Provider: ProviderLucas
== END 2025-01-25 12:50 | disposition home or self-care (01) | DRG 806 ==
PROVIDERS: Obstetrics & Gynecology; Admitting Provider Student in an Organized Health Care Education/Training Program; Referring Provider Student in an Organized Health Care Education/Training Program; Visit Provider Student in an Organized Health Care Education/Training Program
DX: O70.0 First degree perineal laceration during delivery (principal); O72.1 Other immediate postpartum hemorrhage; Z37.0 Single live birth; Z3A.39 39 weeks gestation of pregnancy
CPT/HCPCS: 36415; 59050; 59200; 59400; 85025; 86850; 86900; 86901; G0378; G0379; J2210; J2405; J2590; S0191